=== PATIENT | male | born 1980 | race Two or more races ===

== ENCOUNTER 2024-09-28 20:09 | Emergency (ER) | payer MEDICAID, OTHER ==
[~2024-09-28] VITALS: Ht 167.6 cm; Wt 68.2 kg
[2024-09-28] MEDS: TETRACAINE HCL 0.5% OPTH(EYE) SOLN 4ML EACHEYE ONE (20:40)
[2024-09-28] MEDS ORDERED: BACIOIN49 OP (21:20)
--- NOTE | 2024-09-28 21:21 | ED.PDOC ---
Eye-HPI HPI Comments 44-year-old male brought in by . Patient states he was grinding a piece of metal in the house when he got a piece of metal shaving in his left eye. Has blurred vision and redness. States he was wearing safety glasses but it must have flow did behind the safety glasses. Patient states he was the 3rd time he has had foreign body in his eye. Patient denies loss of vision. Reports mild blurriness and pain. Chief Complaint: Foreign Body Time Seen by MD: 20:22 Reviewed Notes: Nurses Notes Allergies: Coded Allergies: NO KNOWN ALLERGIES (Unverified , 09/28/24) Information Source: Patient Mode of Arrival: Ambulatory Past Medical History PAST MEDICAL HISTORY: DM Surgical History: Denies all surgeries Constitutional: denies: chills, diaphoresis, fatigue, fever, malaise, sweats, weakness, others EENTM: reports: eye pain, eye redness; denies: blurred vision, double vision, ear bleeding, ear discharge, ear drainage, ear pain, ear ringing, hearing loss, mouth pain, mouth swelling, nasal discharge, nose bleeding, nose congestion, nose pain, photophobia, tearing, throat pain, throat swelling, voice changes, others Respiratory: denies: cough, hemoptysis, orthopnea, SOB at rest, shortness of breath, SOB with excertion, stridor, wheezing, others Cardiovascular: denies: chest pain, dizzy spells, diaphoresis, Dyspnea on exertion, edema, irregular heart beat, left arm pain, lightheadedness, palpitations, PND, syncope, others Gastrointestinal: denies: abdomen distended, abdominal pain, blood streaked bowels, constipated, diarrhea, dysphagia, difficulty swallowing, hematemesis, melena, nausea, poor appetite, poor fluid intake, rectal bleeding, rectal pain, vomiting, others Genitourinary: denies: burning, dysuria, flank pain, frequency, hematuria, incontinence, penile discharge, penile sore, pain, testicle pain, testicle swelling, urgency, others Neurological: denies: dizziness, fainting, headache, left sided numbness, left sided weakness, numbness, paresthesia, pre-existing deficit, right sided numbness, right sided weakness, seizure, speech problems, tingling, tremors, weakness, others Musculoskeletal: denies: back pain, gout, joint pain, joint swelling, muscle pain, muscle stiffness, neck pain, others Integumetry: denies: bruises, change in color, change in hair/nails, dryness, laceration, lesions, lumps, rash, wounds, others Allergic/Immunocompromised: denies: Difficulty Healing, Frequent Infections, Hives, Itching, others Hematologic/Lymphatic: denies: anemia, blood clots, easy bleeding, easy bruising, swollen glands, others Physical Exam General Appearance: No Apparent Distress, Normal HEENT: Cornea (L) (Foreign body noted at 6:00 a.m. of the cornea. Metal flake.), Normal ENT Inspection, Pharynx Normal, TMs Normal Neck: Full Range of Motion, Non-Tender, Normal, Normal Inspection Respiratory: Chest Non-Tender, Lungs Clear, No Accessory Muscle Use, No Respiratory Distress, Normal Breath Sounds Cardiovascular: No Edema, No JVD, No Murmur, No Gallop, Normal Peripheral Pulses, Regular Rate/Rhythm Breast Exam: Deferred Gastrointestinal: No Organomegaly, Non Tender, No Pulsatile Mass, Normal Bowel Sounds, Soft Genitalia: Deferred Pelvic: Deferred Rectal: Deferred Extremities: No calf tenderness, Normal capillary refill, Normal inspection, Normal range of motion, Non-tender, No pedal edema Musculoskeletal : Apperance: Normal Neurologic: Alert, 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 Was a procedure done?: Yes Sedation Sedation?: No Arterial Puncture Notes Metallic foreign body removed using 18 gauge needle. Patient tolerated well. Foreign Body Removal Foreign body in: Eye Anesthetic: Other (Tetracaine) Procedure: Removed Informed consent obtained: Yes Risks/benefits/alt described: Yes EENT DIFF Eye: Corneal Abrasion, Corneal Lacerations, Foreign Body-Conjunctiva, Foreign Body-Corneal X-Ray, Labs, Meds, VS Vital Signs Date Time Temp Pulse Resp B/P (MAP) Pulse Ox O2 Delivery O2 Flow Rate FiO2 09/28/24 20:25 97.4 65 20 132/88 (103) 99 Current Medications Medications (Trade) Dose Ordered Sig/Moises Route Start Time Stop Time Status Last Admin Tetracaine HCl (Tetracaine 0.5% Opth Soln) 1 drop ONCE ONCE EACHEYE 09/28/24 20:30 09/28/24 20:31 DC 09/28/24 20:40 X-Ray, Labs, Meds, VS Comment Imaging: X-rays and CT scans were reviewed and interpreted by this provider, imaging shows no fractures and no pathological disease. Pending radiology review. Laboratory: Labs reviewed and interpreted by this provider. No significant abnormalities noted. Patient has prior medical visits reviewed. Med reconciliation performed Vital signs reviewed Time of 1ST Reevaluation: 21:20 Reevaluation 1ST: Improved Patient Education/Counseling: Diagnosis, Treatment, Need For Follow Up (Follow up with PCP in the next 2-4 days.) Family Education/Counseling: No Family Present Departure 1 Departure Time of Disposition: 21:19 Impression: Primary Impression: Metal foreign body in eye region Disposition: HOME / SELF CARE / HOMELESS Condition: Fair e-Prescriptions Bacitracin-Polymyxin B (Ophth) (Bacitracin/Polymyxin B) Op Oin 1 DROP OP TID for 5 Days, #1 OIN Prov: KAYLEE HSIEH 09/28/24 Discharged With: Self Critical Care Note Critical Care Time?: No Stability Stability form required: No Heart Score Heart Score: Heart Score Response (Comments) Value History N/A 0 EKG N/A 0 Age N/A 0 Risk Factors N/A 0 Troponin N/A 0 Total 0 KAYLEE HSIEH Sep 28, 2024 21:21
[2024-09-28 22:41] VITALS: BP 98/63; PULSE 65; RESP 16; O2SAT 97
== END 2024-09-28 22:41 | disposition home or self-care (01) ==
LOC: ER 20:09
DX: T15.02XA Foreign body in cornea, left eye, initial encounter (principal); E11.9 Type 2 diabetes mellitus without complications; W44.8XXA Other foreign body entering into or through a natural orifice, initial encounter; Y93.89 Activity, other specified; Y92.89 Other specified places as the place of occurrence of the external cause; Y99.8 Other external cause status
CPT/HCPCS: 65220